=== PATIENT | female | born 1990 | race Caucasian/White ===

== ENCOUNTER 2021-05-17 10:29 | Outpatient (CLI) | payer OTHER | END 2021-05-17 10:50 | disposition home or self-care (01) | LOC: NST 10:29 | PROVIDERS: ATTEND Obstetrics & Gynecology Maternal & Fetal Medicine | DX: Z34.83 Encounter for supervision of other normal pregnancy, third trimester (principal) ==

== ENCOUNTER 2021-06-13 10:00 | Inpatient (IN) | payer OTHER ==
[~2021-06-13] VITALS: Ht 152.4 cm; Wt 2.3 kg
[2021-06-22] MEDS ORDERED: PRENATAL CAPLE1 EAC1 PO (08:29)
[2021-06-23] MEDS ORDERED: FAMOTIDINE20 MG (10:54)
[2021-06-23] MEDS ORDERED: ONDANSETRON HCL4 MG (10:54)
== END 2021-06-24 11:05 | disposition home or self-care (01) | DRG 788 ==
LOC: OB/GYN 06-22 07:00 → O/R 06-22 08:03 → OB/GYN 06-22 10:00
PROVIDERS: ADMIT Obstetrics & Gynecology; ATTEND Obstetrics & Gynecology
PROC: 4A1HXCZ Monitoring of Products of Conception, Cardiac Rate, External Approach (ICD-10-PCS; 2021-06-22)
PROC: 10D00Z1 Extraction of Products of Conception, Low, Open Approach (ICD-10-PCS; principal; 2021-06-22 07:00)
DX: O34.211 Maternal care for low transverse scar from previous cesarean delivery (principal); Z3A.39 39 weeks gestation of pregnancy; Z37.0 Single live birth; Z20.822 Contact with and (suspected) exposure to COVID-19